=== PATIENT | female | born 1980 ===

== ENCOUNTER 2020-08-15 21:36 | Emergency (ER) | payer BC ==
[~2020-08-15] VITALS: Ht 162.6 cm; Wt 61.2 kg
[2020-08-15] MEDS ORDERED: ACETAMINOPHEN 325 MG TABLET PO ONE (22:00)
[2020-08-15] MEDS ORDERED: TDAP DIPH,PERTUSS,TET VAC/PF 0.5 ML DISP.SYRIN IM ONE (22:00)
[2020-08-15] MEDS ORDERED: ACETAMINOPHEN 325 MG TABLET ONE (22:10)
--- NOTE | 2020-08-15 22:13 | NUR ---
Patient walked into ER for dog bite by her own dog. Small laceration noted on chin. Patient stated that TDAP vaccine in current. ERMD at bedside cleaing wound and applying dermabond and steri-strips.
[2020-08-15 22:18] VITALS: BP 118/77
--- NOTE | 2020-08-15 22:18 | NUR ---
Patient discharged to home in stable condition. Written and verbal after care instructions given. Patient verbalizes understanding of instructions. Stressed follow up or return to ER for worsening s/s.
== END 2020-08-15 22:19 | disposition home or self-care (01) ==
LOC: ER 21:38
DX: S01.81XA Laceration without foreign body of other part of head, initial encounter (principal); X58.XXXA Exposure to other specified factors, initial encounter; Y92.89 Other specified places as the place of occurrence of the external cause; Z91.041 Radiographic dye allergy status
CPT/HCPCS: A4663

== ENCOUNTER 2022-12-18 11:38 | Emergency (ER) | payer BC, OTHER ==
[~2022-12-18] VITALS: Ht 160 cm; Wt 45.4 kg
[2022-12-18] MEDS ORDERED: METOCLOPRAMIDE HCL 10 MG/2 ML VIAL IV ONE (12:00)
[2022-12-18] MEDS ORDERED: KETOROLAC TROMETHAMINE 15 MG INJ IVP ONE (12:00)
[2022-12-18] MEDS ORDERED: METOCLOPRAMIDE HCL 10 MG/2 ML VIAL ONE (12:17)
[2022-12-18] MEDS ORDERED: KETOROLAC TROMETHAMINE 15 MG INJ ONE (12:17)
[2022-12-18 12:26] LABS: BASOPHILS % (AUTO) 0.4 % (0.0-2.0); EOSINOPHILS # (AUTO) 0.2 K/uL (0.0-0.7); HEMATOCRIT 46.8 % (31.2-41.9); HEMOGLOBIN 15.5 g/dL (10.9-14.3); LYMPHOCYTES # (AUTO) 1.2 K/uL (0.8-4.8); LYMPHOCYTES % (AUTO) 19.8 % (20.5-51.5); MEAN CORPUSCULAR HEMOGLOBIN 29.3 uug (24.7-32.8); MEAN CORPUSCULAR HGB CONC 33 g/dL (32.3-35.6); MEAN CORPUSCULAR VOLUME 88.3 fL (75.5-95.3); MONOCYTES # (AUTO) 0.3 K/uL (0.1-1.30); MONOCYTES % (AUTO) 5.4 % (0.0-11.0); NEUTROPHILS # (AUTO) 4.5 K/uL (1.8-8.9); NEUTROPHILS % (AUTO) 71.4 % (38.5-71.5); PLATELET COUNT (AUTO) 312 K/uL (179-408); RED CELL DISTRIBUTION WIDTH 13.4 % (12.3-17.7); WHITE BLOOD COUNT (AUTO) 6.2 K/uL (3.8-11.8)
[2022-12-18 12:37] LABS: DIFFERENTIAL COMMENT 1
[2022-12-18 12:48] LABS: *BILIRUBIN,URIN NEGATIVE (NEGATIVE); *CLARITY,URINE CLEAR (CLEAR); *COLOR,URINE YELLOW (YELLOW); *KETONES,URINE 2+ (NEGATIVE); *PROTEIN,URINE 1+ (NEGATIVE); *UROBILINOGEN,URINE 0.2 E.U./dl (NORMAL); LEUKOCYTE ESTERASE ,URINE NEGATIVE (NEGATIVE); NITRITE, URINE NEGATIVE (NEGATIVE); PH,URINE 5.5 (5.0-8.0); UGLUCOSE NEGATIVE (NEGATIVE)
[2022-12-18 12:51] LABS: *BLOOD, URINE TRACE (NEGATIVE)
[2022-12-18 12:57] LABS: ALANINE AMINOTRANSFERASE 17 U/L (14-59); ALBUMIN 4.3 g/dL (3.4-5.0); ALKALINE PHOSPHATASE 48 U/L (50-136); ASPARTATE AMINOTRANSFERASE 13 U/L (15-37); BILIRUBIN,DIRECT 0.1 mg/dL (0.0-0.2); BILIRUBIN,TOTAL 0.6 mg/dL (0.2-1.0); CARBON DIOXIDE 26 mmol/L (21-32); CHLORIDE 102 mmol/L (98-107); CREATININE 0.6 mg/dL (0.6-1.3); GLUCOSE 89 mg/dL (74-106); LIPASE 66 U/L (16-77); POTASSIUM 3.9 mmol/L (3.5-5.1); SODIUM SERUM 138 mmol/L (136-145); TOTAL PROTEIN, SERUM 8.1 g/dL (6.4-8.2); UREA NITROGEN, BLOOD 11 mg/dL (7-18)
[2022-12-18 13:01] LABS: BACTERIA,URINE FEW /HPF (NONE SEEN); RBC,URINE 0-3 /HPF (0-3); SQUAMOUS EPITHELIAL CELL,UR FEW /HPF (NONE SEEN); WBC,URINE 0-3 /HPF (0-3)
[2022-12-18] MEDS ORDERED: IV NORMAL SALINE 1000 ML BAG IV ONE (13:45)
[2022-12-18] MEDS ORDERED: DIPHENOXYLATE HCL/ATROP SULF TABLET ONE (13:53)
[2022-12-18] MEDS ORDERED: IBUP-1957 PO (13:57)
[2022-12-18] MEDS ORDERED: DIPH1TAB PO (13:57)
[2022-12-18] MEDS ORDERED: AMOX-430 PO (13:57)
[2022-12-18] MEDS ORDERED: METO-295 PO (13:57)
[2022-12-18] MEDS ORDERED: DIPHENOXYLATE HCL/ATROP SULF TABLET PO ONE (14:00)
[2022-12-18 14:26] VITALS: BP 110/70; O2SAT 100
== END 2022-12-18 14:27 | disposition home or self-care (01) ==
LOC: ER 11:38
DX: E86.0 Dehydration (principal); K52.89 Other specified noninfective gastroenteritis and colitis; B96.89 Other specified bacterial agents as the cause of diseases classified elsewhere; Z90.49 Acquired absence of other specified parts of digestive tract; Z88.8 Allergy status to other drugs, medicaments and biological substances; Z79.1 Long term (current) use of non-steroidal anti-inflammatories (NSAID); Z79.899 Other long term (current) drug therapy
CPT/HCPCS: 99285; 74176; 96374; 96361; 96375; 80076; 80048; 81001; 82550; 83690; 85025; 87040 ×2; 84484; 36415; 93005; 83605; J1885; J2765; J7040 ×2; A4606; A4663